=== PATIENT | female | born 1940 | race African-American/Black ===

== ENCOUNTER 2016-10-24 12:38 | Emergency (ER) | payer MEDICARE, OTHER ==
[~2016-10-24] VITALS: Ht 152.4 cm; Wt 70.0 kg
[~2016-10-24 12:38] MED LIST: ALBU6.7H INH; BACL10TA PO; BACT800T5 PO; DILTSR120 PO; GEMF600T PO; GLUCTAB PO; HYDR10TA16 PO; IMIP50TA30 PO; LANTUSP SQ; MEVA40TA6 PO; NYST100010 TOP
[2016-10-24 12:41] VITALS: BP 203/96; PULSE 98; RESP 14; TEMP 98.7; O2SAT 99
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
[2016-10-24 17:56] LABS: BACTERIA, URINE MOD /hpf; BLOOD, URINE SMALL (NEG); GLUCOSE,URINE 300 mg/dL (NEG); KETONE, URINE NEG (NEG); NITRITE,URINE NEG (NEG); PH, URINE 5.5 (5.0-8.5); SQUAMOUS EPITHELIAL CELL URINE 4 /hpf (0-5); URINE COLOR YELLOW (YELLW/STRAW)
[2016-10-24 17:57] LABS: COMMENT (UR) CATH-CULTURE IND; CULTURE IF INDICATED CATH CULTURE IND
[2016-10-24 18:05] VITALS: BP 204/84; PULSE 87; RESP 16; O2SAT 96
[2016-10-24] MEDS ORDERED: DIFL150T PO ×2 (18:18→18:20)
[2016-10-24] MEDS ORDERED: CIPR-9 PO (18:18)
[2016-10-24] MEDS ORDERED: cloNIDine HCL 0.1 MG TAB PO ONE (18:30)
[2016-10-24 19:04] VITALS: BP 116/83; PULSE 80; RESP 16
== END 2016-10-24 19:31 | disposition home or self-care (01) ==
LOC: NETRI 12:38
DX: B37.3 Candidiasis of vulva and vagina (principal); N39.0 Urinary tract infection, site not specified; I25.10 Atherosclerotic heart disease of native coronary artery without angina pectoris; E11.9 Type 2 diabetes mellitus without complications; I10 Essential (primary) hypertension; Z72.0 Tobacco use; B96.89 Other specified bacterial agents as the cause of diseases classified elsewhere
CPT/HCPCS: 81001; 87086; 99283

== ENCOUNTER 2017-03-07 16:01 | Emergency (ER) | payer MEDICARE, OTHER ==
[~2017-03-07] VITALS: Ht 149.9 cm; Wt 68.1 kg
[~2017-03-07 16:01] MED LIST changes: -ALBU6.7H INH; -BACL10TA PO; -BACT800T5 PO; +CIPR-9 PO; +DIFL150T PO; -DILTSR120 PO; -GEMF600T PO; -GLUCTAB PO; -HYDR10TA16 PO; -IMIP50TA30 PO; -LANTUSP SQ; -MEVA40TA6 PO; -NYST100010 TOP
[2017-03-07 16:04] VITALS: BP 211/90; PULSE 78; RESP 17; TEMP 98.8; O2SAT 96
--- NOTE | 2017-03-07 17:09 | PD ---
HPI Chief Complaint: Pain: Acute or Chronic Time Seen by Provider: 16:56 Travel History International Travel<30 days: No Contact w/Intl Traveler<30days: No Traveled to known affect area: No History of Present Illness HPI 76-year-old female with history of hypertension, diabetes, dementia, here with her son for evaluation of right knee pain. Symptoms have been going on for the last week. No recent trauma. No fevers or recent illness. Patient reports difficulty with ambulation because of the pain. She states the pain radiates up into her right hip. According to the patient's son, the patient's insurance has lapsed, and she has not seen a physician in 2 years, and has not taken any of her medications in 2 years. PFSH Past Medical History Arthritis: Yes (OSTEO, RHEUMATOID) Asthma: Yes Blood Disorders: No Depression: Yes (DEPRESSION/ DAUGHTER'S 1 YR AGO) Cardiovascular Problems: Yes (ENLARGED HEART, HTN) High Cholesterol: Yes Coronary Artery Disease: Yes Diabetes: Yes Patient Takes Glucophage: Yes Diminished Hearing: No Endocrine: Yes Gastrointestinal Disorders: No Genitourinary: No Hepatitis: Yes (C) Hypertension: Yes Immune Disorder: No Implanted Vascular Access Dvce: No Musculoskeletal: Yes Neurologic: No Psychiatric: No Reproductive: No Respiratory: Yes (ASTHMA) Myocardial Infarction: Yes ?: Not Menopausal: Yes Past Surgical History Abdominal Surgery: Yes (STOMACH REPAIR) Appendectomy: Yes Cholecystectomy: Yes Eye Surgery: Yes (BILATERAL EYE LASER) Gynecologic Surgery: Yes (exploratory lap,total hysterectomy) Hysterectomy: Yes Joint Replacement: Yes (LEFT TOTAL HIP) Oral Surgery: Yes (tonsillectomy) Tonsillectomy: Yes Other Surgery: Yes (BACK LIPOMA) Social History Alcohol Use: No Tobacco Use: Yes Substance Use: No Allergies-Medications (Allergen,Severity, Reaction): Coded Allergies: Aspirin (Verified Allergy, Severe, RASH, 03/07/17) Erythromycin (Verified Allergy, Severe, HIVES, 03/07/17) Lactose (Unverified Allergy, Severe, gi upset, 03/07/17) pt states she can drink milk in her coffee or tea Morphine (Verified Allergy, Intermediate, 03/07/17) *MDRO Multi-Drug Resistant Organism (Verified Adverse Reaction, Unknown, ) MRSA (abdomen) - 04/23/16 Reported Meds & Prescriptions Reported Meds & Active Scripts Active No Active Prescriptions or Reported Medications Review of Systems Except as stated in HPI: all other systems reviewed are Neg Physical Exam Narrative GENERAL: Well-developed, well-nourished, awake, alert, comfortable, no apparent distress. SKIN: Focused skin assessment warm/dry. HEAD: Atraumatic. Normocephalic. EYES: Pupils equal and round. No scleral icterus. No injection or drainage. ENT: Mucous membranes pink and moist. NECK: Trachea midline. No JVD. CARDIOVASCULAR: Regular rate and rhythm. Bilateral dorsalis pedis pulses are brisk and equal. RESPIRATORY: No accessory muscle use. Clear to auscultation. Breath sounds equal bilaterally. GASTROINTESTINAL: Abdomen soft, non-tender, nondistended. MUSCULOSKELETAL: No obvious deformities. No clubbing. No cyanosis. No edema. Right knee without swelling, without deformity, with mild anterior tenderness, with normal range of motion. No warmth or erythema. Bilateral calves are supple, nontender. NEUROLOGICAL: Awake and alert. No obvious cranial nerve deficits. Motor grossly within normal limits. Normal speech. PSYCHIATRIC: Appropriate mood and affect; insight and judgment normal. Data Data Last Documented VS Vital Signs Date Time Temp Pulse Resp B/P Pulse Ox O2 Delivery O2 Flow Rate FiO2 03/07/17 18:09 18 03/07/17 17:28 100 Room Air 03/07/17 16:04 98.8 78 211/90 Orders Knee, Complete (4vws) (03/07/17 16:42) Pelvis, Ap Only (Routine) (03/07/17 ) Basic Metabolic Panel (Bmp) (03/07/17 17:01) Complete Blood Count With Diff (03/07/17 17:01) Iv Access Insert/Monitor (03/07/17 17:01) Ecg Monitoring (03/07/17 17:01) Oximetry (03/07/17 17:01) Sodium Chloride 0.9% Flush (Ns Flush) (03/07/17 17:15) Acetamin-Hydrocod 325-5 Mg ([place] 5-325 (03/07/17 17:15) Labs Laboratory Tests Test 03/07/17 17:22 White Blood Count 6.1 TH/MM3 Red Blood Count 4.24 MIL/MM3 Hemoglobin 11.4 GM/DL Hematocrit 36.6 % Mean Corpuscular Volume 86.3 FL Mean Corpuscular Hemoglobin 27.0 PG Mean Corpuscular Hemoglobin 31.3 % Concent Red Cell Distribution Width 14.1 % Platelet Count 217 TH/MM3 Mean Platelet Volume 10.0 FL Neutrophils (%) (Auto) 35.5 % Lymphocytes (%) (Auto) 51.1 % Monocytes (%) (Auto) 10.9 % Eosinophils (%) (Auto) 1.7 % Basophils (%) (Auto) 0.8 % Neutrophils # (Auto) 2.2 TH/MM3 Lymphocytes # (Auto) 3.1 TH/MM3 Monocytes # (Auto) 0.7 TH/MM3 Eosinophils # (Auto) 0.1 TH/MM3 Basophils # (Auto) 0.1 TH/MM3 CBC Comment DIFF FINAL Differential Comment Sodium Level 136 MEQ/L Potassium Level 3.3 MEQ/L Chloride Level 101 MEQ/L Carbon Dioxide Level 29.8 MEQ/L Anion Gap 5 MEQ/L Blood Urea Nitrogen 6 MG/DL Creatinine 0.95 MG/DL Estimat Glomerular Filtration 69 ML/MIN Rate Random Glucose 391 MG/DL Calcium Level 8.5 MG/DL [facility] Medical Decision Making Medical Screen Exam Complete: Yes Emergency Medical Condition: Yes Medical Record Reviewed: Yes Differential Diagnosis Osteoarthritis, septic arthritis unlikely, DVT unlikely Narrative Course Vital signs show heart rate 78, blood pressure 211/90, pulse ox 100% on room air , oral temp of 98.8F. CBC shows WBC 6.1, hemoglobin 11.4, hematocrit 36.6, platelets 217. BMP is remarkable for potassium 3.3, random glucose 391. Bicarbonate is 29.8. Right knee x-ray: Advanced tricompartmental osteoarthritis. Pelvis x-ray: CONCLUSION: 1. No acute bony abnormality identified. 2. Postsurgical changes on the left. 3. Degenerative changes in the right hip. The patient is not in DKA. She is not displaying any signs or symptoms of hypertensive crisis. The patient and the patient's son were made aware of all findings. Physical exam is not consistent with a septic arthritis. She is able to range the knee and it is not warm or erythematous. manager concrete was contacted and discussed with the patient and the patient's son options for follow-up as an outpatient. In the meantime I will write her a refill of her glipizide, and will give her a prescription for hydrochlorothiazide. I stressed the importance of follow-up with a primary care physician. Patient's son verbalizes understanding and agreement with plan. Diagnosis Primary Impression: Osteoarthritis Qualified Code: M15.9 - Osteoarthritis of multiple joints, unspecified osteoarthritis type Additional Impressions: Hyperglycemia Essential hypertension Referrals: Primary Care Physician 2 days Additional Instructions: Follow-up with a primary care physician this week. Take medications as prescribed. Return to the emergency department for worsening symptoms or any other concerns. Scripts Hydrocodone-Acetaminophen (Lortab)5-325 Mg Tab1 Tab PO Q6H PRN (PAIN) #20 TAB Ref 0 Prov:Pascual Dimas MD 03/07/17 Glipizide 5 Mg Tab5 Mg PO DAILY #30 TAB Ref 2 Take 30 minutes before a meal Prov:Pascual Dimas MD 03/07/17 Hydrochlorothiazide 25 Mg Tab25 Mg PO DAILY #30 TAB Ref 0 Prov:Pascual Dimas MD 03/07/17 Disposition: 01 DISCHARGE HOME Condition: Stable Pascual Dimas MD Mar 07, 2017 17:09
[2017-03-07] MEDS ORDERED: SODIUM CHLORIDE 0.9% FLUSH 10 ML FLUSH IV FLUSH PRN (17:15)
[2017-03-07] MEDS ORDERED: ACETAMINOPHEN/HYDROcodone 325 MG/5 MG TAB PO ONE (17:15)
[2017-03-07 17:28] VITALS: O2SAT 100
--- NOTE | 2017-03-07 17:36 | RADRPT ---
EXAM DATE/TIME: 03/07/2017 17:08 [facility] COMPARISON: ABDOMEN UPRIGHT ONLY, April 23, 2016, 12:18. INDICATIONS : Pelvic pain, denies injury MEDICAL HISTORY : Arthritis. SURGICAL HISTORY : None. ENCOUNTER: Initial ACUITY: 2 days PAIN SCORE: 0/10 LOCATION: Pelvis FINDINGS: The patient is post left hip arthroplasty. Orthopedic hardware is well-positioned. The right femoral head is well situated within the acetabular fossa. There are degenerative changes. No acute fracture is identified. CONCLUSION: 1. No acute bony abnormality identified. 2. Postsurgical changes on the left. 3. Degenerative changes in the right hip. Hal Mesa MD on March 07, 2017 at 17:32 Board Certified Radiologist. This report was verified electronically.
--- NOTE | 2017-03-07 17:36 | RADRPT ---
EXAM DATE/TIME: 03/07/2017 17:10 [facility] COMPARISON: PELVIS AP ONLY, March 07, 2017, 17:08. INDICATIONS : Right knee pain, denies injury MEDICAL HISTORY : Arthritis. SURGICAL HISTORY : None. ENCOUNTER: Initial ACUITY: 2 days PAIN SCORE: 8/10 LOCATION: Right Knee FINDINGS: The exam demonstrates advanced tricompartmental osteoarthritis. There is no significant joint effusio n. No acute fractures seen. CONCLUSION: 1. Advanced tricompartmental osteoarthritis. Hal Mesa MD on March 07, 2017 at 17:33 Board Certified Radiologist. This report was verified electronically.
[2017-03-07 17:46] LABS: AUTOMATED NEUTROPHIL # 2.2 TH/MM3 (1.8-7.7); BASOPHIL # 0.1 TH/MM3 (0-0.2); BASOPHIL % 0.8 % (0.0-2.0); EOSINOPHIL # 0.1 TH/MM3 (0-0.4); EOSINOPHIL % 1.7 % (0.0-4.0); HEMATOCRIT 36.6 % (35.0-46.0); HEMO FLAGS DIFF FINAL; LYMPH % 51.1 % (9.0-44.0); LYMPHOCYTE # 3.1 TH/MM3 (1.0-4.8); MEAN CELL VOLUME 86.3 FL (80.0-100.0); MEAN CORPUSCULAR HGB CONC 31.3 % (32.0-36.0); MONO % 10.9 % (0.0-8.0); NEUT % 35.5 % (16.0-70.0); PLATELET COUNT 217 TH/MM3 (150-450); RED BLOOD COUNT 4.24 MIL/MM3 (4.00-5.30); RED CELL DISTRIBUTION WIDTH 14.1 % (11.6-17.2); WHITE BLOOD COUNT 6.1 TH/MM3 (4.0-11.0)
[2017-03-07 18:00] LABS: BICARBONATE 29.8 MEQ/L (21.0-32.0); POTASSIUM 3.3 MEQ/L (3.5-5.1)
[2017-03-07] MEDS ORDERED: GLIP5TAB8 PO (18:15)
[2017-03-07] MEDS ORDERED: HYDR-3533 PO (18:15)
[2017-03-07] MEDS ORDERED: HYDR25TA5 PO (18:15)
[2017-03-07 18:29] VITALS: BP 167/91; PULSE 66; RESP 18; O2SAT 100
[2017-03-07] MEDS ORDERED: glipiZIDE 5 MG TAB PO ONE (18:30)
[2017-03-07] MEDS ORDERED: INSULIN HUMAN REGULAR 1,000 UNITS/10 ML VIAL SQ ONE (18:30)
== END 2017-03-07 19:35 | disposition home or self-care (01) ==
LOC: NEPD 16:01
DX: M15.9 Polyosteoarthritis, unspecified (principal); I10 Essential (primary) hypertension; E11.65 Type 2 diabetes mellitus with hyperglycemia; Z79.84 Long term (current) use of oral hypoglycemic drugs; Z79.4 Long term (current) use of insulin; Z72.0 Tobacco use
CPT/HCPCS: 72170; 73564; 80048; 85025; 96372; 99284; J1815

== ENCOUNTER 2017-03-13 17:52 | Emergency (ER) | payer MEDICARE, OTHER ==
[~2017-03-13] VITALS: Ht 147.3 cm; Wt 60.0 kg
[~2017-03-13 17:52] MED LIST changes: -CIPR-9 PO; -DIFL150T PO; +GLIP5TAB8 PO; +HYDR-3533 PO; +HYDR25TA5 PO
[2017-03-13 17:53] VITALS: BP 154/75; PULSE 82; RESP 20; TEMP 98.8; O2SAT 100
--- NOTE | 2017-03-13 18:14 | PD ---
Physical Exam Date Seen by Provider: Mar 13, 2017 Time Seen by Provider: 18:12 Narrative 76 yo female that presents to the ED for evaluation of insulin refill. Has BS of 400 here. Non compliant. No symptoms. Vitals are stable in triage. Awaiting bed placement. Data Data Last Documented VS Vital Signs Date Time Temp Pulse Resp B/P Pulse Ox O2 Delivery O2 Flow Rate FiO2 03/13/17 17:53 98.8 82 20 154/75 100 Room Air [facility] Medical Record Reviewed: Yes Supervised Visit with HEATHER: No Clinton Acharya Mar 13, 2017 18:13
--- NOTE | 2017-03-13 18:39 | PD ---
HPI Chief Complaint: Diabetic Time Seen by Provider: 18:35 Travel History International Travel<30 days: No Contact w/Intl Traveler<30days: No Traveled to known affect area: No History of Present Illness HPI 76-year-old female presents to the emergency department for evaluation of hyperglycemia. She presents here with her son. Her son states that she would not be take care of his been off all her medications for 2 years. She states she has been more fatigued and had a decreased appetite. She denies any chest fissures breath. No abdominal pain. No nausea, vomiting, diarrhea. No fevers or chills. The patient states she would like a refill of her insulin. However , upon further question, she states she has not been on insulin for 2 years. She is getting established with a primary care physician tomorrow off [facility]. However, the son does not remember the name of the physician. The patient does report a history of previous [place], hypertension, diabetes, dementia. She is currently on hydrocodone, hydrochlorothiazide, glipizide. She states she has taken these as prescribed. PFSH Past Medical History Hx Anticoagulant Therapy: Yes Arthritis: Yes (OSTEO, RHEUMATOID) Asthma: Yes Blood Disorders: No Depression: Yes (DEPRESSION/ DAUGHTER'S 1 YR AGO) Cardiovascular Problems: Yes (ENLARGED HEART, HTN) High Cholesterol: Yes Coronary Artery Disease: Yes Diabetes: Yes Patient Takes Glucophage: Yes Diminished Hearing: No Endocrine: Yes Gastrointestinal Disorders: No Genitourinary: No Hepatitis: Yes (C) Hypertension: Yes Immune Disorder: No Implanted Vascular Access Dvce: No Musculoskeletal: Yes Neurologic: No Psychiatric: No Reproductive: No Respiratory: Yes (ASTHMA) Immunizations Current: Yes Myocardial Infarction: Yes Menopausal: Yes Past Surgical History Abdominal Surgery: Yes (STOMACH REPAIR) Appendectomy: Yes Cholecystectomy: Yes Eye Surgery: Yes (BILATERAL EYE LASER) Gynecologic Surgery: Yes (exploratory lap,total hysterectomy) Hysterectomy: Yes Joint Replacement: Yes (LEFT TOTAL HIP) Oral Surgery: Yes (tonsillectomy) Tonsillectomy: Yes Other Surgery: Yes (BACK LIPOMA) Social History Alcohol Use: No Tobacco Use: No Substance Use: No Allergies-Medications (Allergen,Severity, Reaction): Coded Allergies: Aspirin (Verified Allergy, Severe, RASH, 03/13/17) Erythromycin (Verified Allergy, Severe, HIVES, 03/13/17) Lactose (Unverified Allergy, Severe, gi upset, 03/13/17) pt states she can drink milk in her coffee or tea Morphine (Verified Allergy, Intermediate, 03/13/17) *MDRO Multi-Drug Resistant Organism (Verified Adverse Reaction, Unknown, ) MRSA (abdomen) - 04/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 Afebrile. SKIN: Focused skin assessment warm/dry. HEAD: Normocephalic. Atraumatic. EYES: No scleral icterus. No injection or drainage. NECK: Supple, trachea midline. No JVD or lymphadenopathy. CARDIOVASCULAR: Regular rate and rhythm without murmurs, gallops, or rubs. RESPIRATORY: Breath sounds equal bilaterally. No accessory muscle use. Lungs sounds are clear to auscultation. GASTROINTESTINAL: Abdomen soft, non-tender, nondistended. MUSCULOSKELETAL: No cyanosis, or edema. BACK: Nontender without obvious deformity. No CVA tenderness. Data Data Last Documented VS Vital Signs Date Time Temp Pulse Resp B/P Pulse Ox O2 Delivery O2 Flow Rate FiO2 03/13/17 18:47 75 16 193/82 99 Room Air 03/13/17 17:53 98.8 Orders Iv Access Insert/Monitor (03/13/17 18:34) Complete Blood Count With Diff (03/13/17 18:34) Basic Metabolic Panel (Bmp) (03/13/17 18:34) Sodium Chlor 0.9% 1000 Ml Inj (Ns 1000 M (03/13/17 18:45) Insulin Human Regular Inj (Novolin R Inj (03/13/17 20:00) Labs Laboratory Tests Test 03/13/17 18:45 White Blood Count 6.7 TH/MM3 Red Blood Count 4.34 MIL/MM3 Hemoglobin 12.3 GM/DL Hematocrit 36.6 % Mean Corpuscular Volume 84.3 FL Mean Corpuscular Hemoglobin 28.3 PG Mean Corpuscular Hemoglobin 33.5 % Concent Red Cell Distribution Width 13.4 % Platelet Count 219 TH/MM3 Mean Platelet Volume 9.9 FL Neutrophils (%) (Auto) 40.6 % Lymphocytes (%) (Auto) 45.8 % Monocytes (%) (Auto) 10.7 % Eosinophils (%) (Auto) 2.1 % Basophils (%) (Auto) 0.8 % Neutrophils # (Auto) 2.7 TH/MM3 Lymphocytes # (Auto) 3.0 TH/MM3 Monocytes # (Auto) 0.7 TH/MM3 Eosinophils # (Auto) 0.1 TH/MM3 Basophils # (Auto) 0.1 TH/MM3 CBC Comment DIFF FINAL Differential Comment Sodium Level 135 MEQ/L Potassium Level 3.8 MEQ/L Chloride Level 97 MEQ/L Carbon Dioxide Level 32.4 MEQ/L Anion Gap 6 MEQ/L Blood Urea Nitrogen 10 MG/DL Creatinine 1.14 MG/DL Estimat Glomerular Filtration 56 ML/MIN Rate Random Glucose 351 MG/DL Calcium Level 9.0 MG/DL MDM Medical Decision Making Medical Screen Exam Complete: Yes Emergency Medical Condition: Yes Medical Record Reviewed: Yes Differential Diagnosis Hyperglycemia versus DKA versus electrolyte abnormality Narrative Course 76-year-old female presents to the emergency department for evaluation of hyperglycemia. Blood sugar in triage was 400. The patient states she would like a refill of her insulin. However, she has been off of her insulin for over 2 years. She has appointment with a primary care physician tomorrow. CBC , BMP are ordered and pending. Patient is given normal saline 1 L IV bolus. CBC shows no acute abnormality. BMP shows hyperglycemia of 351. Discussed the case my attending physician, Dr. Brody, recommends 12 units of regular insulin subcutaneous and discharged home to follow-up with her doctor tomorrow. The patient and her son verbalizes agreement and understanding. The patient was discharged in stable condition with instructions, including return instructions and follow up instructions. Diagnosis Primary Impression: Hyperglycemia Referrals: Primary Care Physician call for appointment Patient Instructions: Diabetic Hyperglycemia (ED), General Instructions Additional Instructions: Continue glipizide. Follow-up with your physician tomorrow as scheduled. Return to the emergency department for any acute worsening of symptoms. Med/Other Pt SpecificInfo: No Change to Meds Disposition: DISCHARGE HOME Condition: Stable Judy Riojas Mar 13, 2017 18:39
[2017-03-13] MEDS ORDERED: SODIUM CHLOR 0.9% 1000 ML INJ 1,000 ML IV ONE (18:45)
[2017-03-13 18:47] VITALS: BP 193/82; PULSE 75; RESP 16; O2SAT 99
[2017-03-13 19:16] LABS: AUTOMATED NEUTROPHIL # 2.7 TH/MM3 (1.8-7.7); BASOPHIL # 0.1 TH/MM3 (0-0.2); BASOPHIL % 0.8 % (0.0-2.0); EOSINOPHIL # 0.1 TH/MM3 (0-0.4); EOSINOPHIL % 2.1 % (0.0-4.0); HEMATOCRIT 36.6 % (35.0-46.0); HEMO FLAGS DIFF FINAL; LYMPH % 45.8 % (9.0-44.0); MEAN CELL VOLUME 84.3 FL (80.0-100.0); MEAN CORPUSCULAR HEMOGLOBIN 28.3 PG (27.0-34.0); MEAN CORPUSCULAR HGB CONC 33.5 % (32.0-36.0); MONO % 10.7 % (0.0-8.0); NEUT % 40.6 % (16.0-70.0); PLATELET COUNT 219 TH/MM3 (150-450); RED BLOOD COUNT 4.34 MIL/MM3 (4.00-5.30); RED CELL DISTRIBUTION WIDTH 13.4 % (11.6-17.2); WHITE BLOOD COUNT 6.7 TH/MM3 (4.0-11.0)
[2017-03-13 19:42] LABS: BICARBONATE 32.4 MEQ/L (21.0-32.0); POTASSIUM 3.8 MEQ/L (3.5-5.1)
[2017-03-13] MEDS ORDERED: INSULIN HUMAN REGULAR 1,000 UNITS/10 ML VIAL SQ ONE (20:00)
== END 2017-03-13 20:28 | disposition home or self-care (01) ==
LOC: NEPD 17:52
DX: E11.65 Type 2 diabetes mellitus with hyperglycemia (principal); R53.83 Other fatigue; J45.909 Unspecified asthma, uncomplicated; M06.9 Rheumatoid arthritis, unspecified; I25.10 Atherosclerotic heart disease of native coronary artery without angina pectoris; I51.7 Cardiomegaly; I10 Essential (primary) hypertension; E78.00 Pure hypercholesterolemia, unspecified; B19.20 Unspecified viral hepatitis C without hepatic coma
CPT/HCPCS: 80048; 85025; 96372; 99284; J1815; J7030